=== PATIENT | female | born 1970 | race Caucasian/White ===

== ENCOUNTER 2023-08-09 21:39 | Emergency (ER) | payer MEDICAID ==
[~2023-08-09] VITALS: Ht 175.3 cm; Wt 136.1 kg
[2023-08-09 21:50] VITALS: BP_SYST 177; PULSE 105; RESP 19; TEMP 97.9; O2SAT 100
[2023-08-09] MEDS ORDERED: DOXYCYCLINE HYCLATE 100 MG CAPSULE PO ONE (22:15)
[2023-08-09] MEDS ORDERED: HYDROcodone/ACETAMIN 5-325 MG TAB (NORCO/ VICODIN) PO ONE (22:15)
[2023-08-09] MEDS ORDERED: DOXY100C5 PO (22:25)
[2023-08-09] MEDS ORDERED: CEPH250C PO (22:25)
[2023-08-09] MEDS ORDERED: NABU-140 PO (22:25)
[2023-08-09 22:45] VITALS: BP_SYST 148; PULSE 102; RESP 18; TEMP 96.6; O2SAT 100
== END 2023-08-09 22:45 | disposition home or self-care (01) ==
LOC: SED 21:39
DX: L02.214 Cutaneous abscess of groin (principal)
CPT/HCPCS: 99283

== ENCOUNTER 2023-08-12 23:22 | Emergency (ER) | payer MEDICAID ==
[~2023-08-12] VITALS: Ht 167.6 cm; Wt 154.2 kg
[~2023-08-12 23:22] MED LIST: CEPH250C PO; DOXY100C5 PO; NABU-140 PO
[2023-08-12 23:42] VITALS: BP_SYST 145; PULSE 84; RESP 18; TEMP 98.3; O2SAT 96
[2023-08-13] MEDS: ONDANSETRON HCL 4 MG/2 ML VIAL IVP ONE (00:34)
[2023-08-13] MEDS: MECLIZINE HCL 25 MG TABLET (ANITVERT) PO ONE (00:34)
[2023-08-13] MEDS ORDERED: MECL-261 PO (00:46)
[2023-08-13 00:50] VITALS: BP_SYST 142; PULSE 87; RESP 20; TEMP 97.7; O2SAT 99
[2023-08-13 01:12] LABS: BILIRUBIN,URINE NEGATIVE (NEGATIVE); BLOOD, URINE 1+ (NEGATIVE); CLARITY/URINE SL CLOUDY (CLEAR); COLOR,URINE YELLOW (YELLOW); GLUCOSE,URINE NEGATIVE (NEGATIVE); KETONES,URINE NEGATIVE (NEGATIVE); LEUKOCYTE ESTERASE ,URINE NEGATIVE (NEGATIVE); NITRITE, URINE NEGATIVE (NEGATIVE); PROTEIN URINE NEGATIVE (NEGATIVE); UROBILINOGEN,URINE 0.2 (0.2-1.0)
[2023-08-13 01:28] LABS: BASOPHILS # (AUTO) 0.1 K/uL (0.0-0.2); BASOPHILS % (AUTO) 0.7 % (0.0-2.0); EOSINOPHILS # (AUTO) 0.3 K/uL (0.0-0.4); EOSINOPHILS % (AUTO) 3.2 % (0.0-4.0); HEMATOCRIT 43.2 % (36-48); HEMOGLOBIN 14.1 g/dL (12.0-16.0); LYMPHOCYTES # (AUTO) 2.8 K/uL (1.0-5.5); LYMPHOCYTES % (AUTO) 27.4 % (20.5-51.5); MEAN CORPUSCULAR HEMOGLOBIN 29 pg (27-31); MEAN CORPUSCULAR HGB CONC 33 % (32-36); MEAN CORPUSCULAR VOLUME 89 fL (79.0-98.0); MONOCYTES # (AUTO) 0.5 K/uL (0.0-1.0); MONOCYTES % (AUTO) 4.7 % (1.7-9.3); NEUTROPHILS # (AUTO) 6.5 K/uL (1.8-7.7); PLATELET COUNT (AUTO) 252 K/uL (130-430); RED BLOOD CELL COUNT(AUTO) 4.87 MIL/uL (4.2-6.2); RED CELL DISTRIBUTION WIDTH 14.2 % (9.0-15.0); WHITE BLOOD COUNT (AUTO) 10.1 K/uL (4.8-10.8)
[2023-08-13 01:48] LABS: BACTERIA,URINE None Seen /HPF (None Seen); WBC,URINE 0-3 /HPF (0-3)
== END 2023-08-13 00:50 | disposition home or self-care (01) ==
LOC: SED 23:22
DX: H81.10 Benign paroxysmal vertigo, unspecified ear (principal); I10 Essential (primary) hypertension; E11.9 Type 2 diabetes mellitus without complications; Z79.899 Other long term (current) drug therapy
CPT/HCPCS: 99285; 81001; 85025; 36415; 93005; 96374; 70450; J8597; J2405; 81000; 81015

== ENCOUNTER 2024-03-24 00:54 | Emergency (ER) | payer MEDICAID ==
[~2024-03-24] VITALS: Ht 175.3 cm; Wt 143.3 kg
[~2024-03-24 00:54] MED LIST changes: +MECL-261 PO
[2024-03-24 01:06] VITALS: PULSE 97; RESP 20; TEMP 97.4; O2SAT 97
[2024-03-24] MEDS ORDERED: DOXY100C5 PO (01:27)
[2024-03-24] MEDS ORDERED: NYST15CR37 TP (01:27)
[2024-03-24 01:33] VITALS: BP_SYST 194; PULSE 97; RESP 20; TEMP 97.4; O2SAT 97
== END 2024-03-24 01:33 | disposition home or self-care (01) ==
LOC: SED 00:54
DX: I89.0 Lymphedema, not elsewhere classified (principal); B35.6 Tinea cruris; E11.9 Type 2 diabetes mellitus without complications; I10 Essential (primary) hypertension; E66.01 Morbid (severe) obesity due to excess calories; Z90.49 Acquired absence of other specified parts of digestive tract; Z79.899 Other long term (current) drug therapy; Z79.2 Long term (current) use of antibiotics
CPT/HCPCS: 99283

== ENCOUNTER 2024-05-18 17:45 | Emergency (ER) | payer MEDICAID ==
[~2024-05-18] VITALS: Ht 175.3 cm; Wt 136.1 kg
[~2024-05-18 17:45] MED LIST changes: +NYST15CR37 TP
[2024-05-18 17:58] VITALS: BP_SYST 184; PULSE 100; RESP 20; TEMP 98.3; O2SAT 99
[2024-05-18] MEDS: LIDOCAINE PATCH 5% 1 EA TP ONE (21:00)
[2024-05-18] MEDS: KETOROLAC TROMETHAMINE 60 MG/2 ML VIAL IM ONE (21:04)
[2024-05-18] MEDS ORDERED: DICL20GE TP (21:12)
[2024-05-18] MEDS ORDERED: DICL75TA5 PO (21:12)
[2024-05-18 21:20] VITALS: BP_SYST 170; PULSE 97; RESP 20; TEMP 98.3; O2SAT 99
== END 2024-05-18 21:20 | disposition home or self-care (01) ==
LOC: SED 17:45
DX: S46.811A Strain of other muscles, fascia and tendons at shoulder and upper arm level, right arm, initial encounter (principal); E11.9 Type 2 diabetes mellitus without complications; I10 Essential (primary) hypertension; E66.01 Morbid (severe) obesity due to excess calories; Z68.41 Body mass index [BMI] 40.0-44.9, adult; Z79.899 Other long term (current) drug therapy; Z79.2 Long term (current) use of antibiotics; W18.39XA Other fall on same level, initial encounter; Y93.89 Activity, other specified; Y92.89 Other specified places as the place of occurrence of the external cause; Y99.8 Other external cause status
CPT/HCPCS: 99283; 73080; 96372; J1885